=== PATIENT | male | born 1985 | race Caucasian/White ===

== ENCOUNTER 2018-03-07 07:44 | Emergency (ER) | payer MEDICARE ==
[~2018-03-07] VITALS: Ht 185.4 cm; Wt 108.0 kg
[~2018-03-07 07:44] MED LIST: Z.0.DIAZEPAM10 MG; Z.0.EFFEXOR XR150 MG
--- OUTSIDE RECORDS SUMMARY | 2018-03-07 07:47 | XMS REPORT | Clinical Summary ---
Author Author SANDRA [facility] Address Unknown Phone Unavailable Care Team Providers Care Marketing Technologist Name Role Phone Adrián Owens PCP Allergies Comments Active Allergy Reactions Severity Noted Date H-Sgmjptimmjtr-Ugabxuinr- Other (See Low 01/21/2018 Pe-Dm Comments) Medications End Date Status Medication Sig Dispensed Refills Start Date Active ALPRAZolam (XANAX) 1 MG Take 1 mg by 5 tablet mouth 2 (two) 8 times daily as needed. Active diazePAM (VALIUM) 10 MG Take 10 mg by 5 tablet mouth 2 (two) 8 times daily as needed. 01/21/2018 Discontinued acetaminophen-codeine Take 1-2 20 tablet 0 (TYLENOL #3) 300-30 mg tablets by 8 per tablet mouth every 6 (six) hours as needed for Pain for up to 7 days. Max Daily Amount: 8 tablets 01/31/2018 clindamycin (CLEOCIN) 300 Take 1 40 capsule 0 MG capsule capsule (300 8 mg total) by mouth every 6 (six) hours for 10 days. 01/28/2018 HYDROcodone-acetaminophen Take 1 tablet 20 tablet 0 (NORCO 5-325) 5-325 mg by mouth 8 per tablet every 6 (six) hours as needed for Pain for up to 7 days. Max Daily Amount: 4 tablets Active Problems Not on file Encounters Care Team Description Date Type Specialty Filipe Mcintosh Jr., MD [facility] infection (Primary Dx) 01/21/2018 Emergency Emergency Medicine 01/21/2018 Travel after 03/06/2017 Social History Date Tobacco Use Types Packs/Day Years Used Former Smoker Smokeless Tobacco: Chew Current User Tobacco Cessation: Ready to Quit: No; Counseling Given: No Alcohol Use Drinks/Week oz/Week Comments Yes Sex Assigned at Date Recorded Not on file Industry Job Start Date Occupation Not on file Not on file Not on file Travel End Travel History Travel Start No recent travel history available. Last Filed Vital Signs Time Taken Vital Sign Reading 01/21/2018 2:15 PM [employer] Blood Pressure 154/86 01/21/2018 2:15 PM [employer] Pulse 87 01/21/2018 2:15 PM [employer] Temperature 36.7 C (98 F) 01/21/2018 2:15 PM [employer] Respiratory Rate 18 01/21/2018 2:15 PM [employer] Oxygen Saturation 100% - Inhaled Oxygen - Concentration 01/21/2018 1:28 PM [employer] Weight 103.5 kg (228 lb 3.2 oz) 01/21/2018 1:28 PM [employer] Height 182.9 cm (6') 01/21/2018 1:28 PM [employer] Body Mass Index 30.95 Plan of Treatment Not on file Results Not on fileafter 03/06/2017 Insurance Payer Benefit Subscriber ID Type Phone Address Plan / Group MEDICARE MEDICARE A xxxxxxxxxxx Medicare B
[2018-03-07] MEDS ORDERED: SODIUM CHLORIDE 0.9% 1000ML 1,000 ML IV STA (08:42)
[2018-03-07] MEDS ORDERED: PANTOPRAZOLE 40 MG 10ML VIAL IV ONE (09:15)
[2018-03-07] MEDS ORDERED: MORPHINE SULFATE 2 MG/ML SYR IV ONE (09:15)
[2018-03-07] MEDS ORDERED: ONDANSETRON HCL INJ 2 MG/ML VIAL IV ONE (09:15)
[2018-03-07 09:20] LABS: BASOPHILS % 0.3 % (0.0-1.0); EOSINOPHILS # (AUTO) 0.3 (0.0-0.4); EOSINOPHILS % 2.9 % (0.0-6.0); HEMATOCRIT 42.1 % (38.2-49.6); HEMOGLOBIN 14.3 g/dL (14.0-18.0); LYMPHOCYTES # (AUTO) 2.9 (1.0-3.2); LYMPHOCYTES % 29.1 % (18.0-39.1); MEAN CORPUSCULAR HEMOGLOBIN 32.1 pg (28-32); MEAN CORPUSCULAR VOLUME 94.4 fL (81-99); MONOCYTES # (AUTO) 0.9 (0.2-0.8); MONOCYTES % 8.6 % (4.4-11.3); NEUTROPHILS # (AUTO) 5.9 (2.1-6.9); NEUTROPHILS % 58.5 % (38.7-80.0); PLATELET COUNT 183 x10e3/uL (140-360); RED BLOOD COUNT 4.46 x10e6/uL (4.3-5.7); RED CELL DISTRIBUTION WIDTH 12.9 % (11.7-14.4)
[2018-03-07 09:28] LABS: AMPHETAMINES SCREEN,URINE NEGATIVE (NEGATIVE); BENZODIAZEPINES SCREEN,URINE POSITIVE (NEGATIVE); PHENCYCLIDINE SCREEN,URINE NEGATIVE (NEGATIVE)
[2018-03-07] MEDS ORDERED: MORPHINE SULFATE INJ 4 MG/ML INJ IV ONE (09:30)
[2018-03-07 09:32] LABS: BILIRUBIN,URINE NEGATIVE (NEGATIVE); CLARITY,URINE SL CLOUDY (CLEAR); COLOR,URINE YELLOW (YELLOW); KETONES,URINE NEGATIVE (NEGATIVE); LEUKOCYTE ESTERASE ,URINE NEGATIVE (NEGATIVE); NITRITE,URINE NEGATIVE (NEGATIVE); PROTEIN,URINE DIPSTICK NEGATIVE (NEGATIVE); URINE UROBILINOGEN 0.2 mg/dL (0.2 - 1)
[2018-03-07 09:34] LABS: ALANINE AMINOTRANSFERASE 27 IU/L (0-55); ALBUMIN 3.4 g/dL (3.5-5.0); ALBUMIN/GLOBULIN RATIO 0.9 (0.8-2.0); ALKALINE PHOSPHATASE 48 IU/L (40-150); AMYLASE 29 U/L (25-125); ANION GAP 15.2 mmol/L (8-16); BLOOD UREA NITROGEN 19 mg/dL (7-26); BUN/CREATININE RATIO 16 (6-25); CALCIUM 9.1 mg/dL (8.4-10.2); CARBON DIOXIDE 21 mmol/L (22-29); CHLORIDE 102 mmol/L (98-107); CREATINE KINASE 61 IU/L (30-200); CREATININE, SERUM 1.22 mg/dL (0.72-1.25); EST GLOMERULAR FILTRATION RATE > 60 ML/MIN (60-); GLUCOSE 92 mg/dL (74-118); LIPASE 34 U/L (8-78); MAGNESIUM 2.1 MG/DL (1.3-2.1); POTASSIUM 4.2 mmol/L (3.5-5.1); SODIUM 134 mmol/L (136-145)
[2018-03-07 09:36] LABS: EPITHELIAL CELLS,URINE RARE /LPF
[2018-03-07 09:44] LABS: INR 0.86; PROTHROMBIN TIME 12.5 seconds (11.9-14.5)
[2018-03-07 09:45] LABS: PARTIAL THROMBOPLASTIN TIME 26.4 seconds (23.8-35.5)
--- NOTE | 2018-03-07 10:30 | NUR ---
PT REPORTS NO CHANGE IN PAIN LEVEL AFTER MORPHINE GIVEN. DR. OROZCO INFORMED, NO NEW ORDERS AT THIS TIME.
--- NOTE | 2018-03-07 11:14 | Diagnostic Imaging Report ---
EXAM: CT ABDOMEN AND PELVIS with IV CONTRAST DATE: 03/07/2018 8:42 AM Time stamp on Exam: 10:20 AM INDICATION: Abdominal pain COMPARISON: None TECHNIQUE: The abdomen and pelvis were scanned using a multidetector helical scanner. Coronal and sagittal reformations were obtained. Routine protocol performed. Low-dose technique was utilized. IV Contrast: 100 cc of Isovue-370 Oral Contrast: Water Radiation Dose: Total DLP 834.77 mGy*cm Estimated effective dose: DLP x 0.015 x size factor FINDINGS: LOWER THORAX: No consolidations or pulmonary nodules. LIVER: No masses BILIARY: The gallbladder is absent with clips present. No ductal dilatation. SPLEEN: No masses PANCREAS: No masses ADRENALS: No nodules KIDNEYS: Symmetric perfusion. No enhancing masses. No hydronephrosis. GI TRACT: No distention, wall thickening or evidence of obstruction. There are clips in the GE junction region. The appendix is normal. VESSELS: Circumaortic left renal vein. PERITONEUM/RETROPERITONEUM: No free air or fluid LYMPH NODES: There is a calcified left inguinal lymph node measuring 2.8 cm. REPRODUCTIVE ORGANS: Unremarkable BLADDER: Thickening of the bladder wall. SOFT TISSUES: Unremarkable BONES: No suspicious bone lesions. Mild degenerative changes of the spine. IMPRESSION: 1. Mild concentric bladder wall thickening. 2. Otherwise no acute abnormality within the abdomen or pelvis. Signed by: Dr. Andrea Torrez DO on 03/07/2018 11:11 AM
[2018-03-07] MEDS ORDERED: SODIUM CHLORIDE 0.9% 50ML 50 ML ONE (12:00)
[2018-03-07] MEDS ORDERED: IOPAMIDOL 370 MG/ML 200 ML INFUS..BTL INJ ONE (12:00)
== END 2018-03-07 12:32 | disposition home or self-care (01) ==
LOC: ER 07:44
DX: R10.11 Right upper quadrant pain (principal); R10.84 Generalized abdominal pain; R11.2 Nausea with vomiting, unspecified
CPT/HCPCS: 36415; 74177; 80053; 80307; 81001; 82150; 82550; 82553; 83690; 83735; 84484; 85025; 85610; 85730; 99284; J2270; J2405; J7030; Q9967